=== PATIENT | male | born 1985 | race Caucasian/White ===

== ENCOUNTER 2017-11-19 02:00 | Emergency (ER) | payer MEDICAID ==
[2017-11-19] MEDS: HYDROCODONE/APAP (10/325) TAB PO (03:20)
== END 2017-11-19 05:09 | disposition home or self-care (01) ==
LOC: FTE 02:00
DX: S62.316A Displaced fracture of base of fifth metacarpal bone, right hand, initial encounter for closed fracture (principal); F17.210 Nicotine dependence, cigarettes, uncomplicated; Y09 Assault by unspecified means; Y92.481 Parking lot as the place of occurrence of the external cause
CPT/HCPCS: 29125; 73130-RT; 99283-25

== ENCOUNTER 2018-08-08 20:22 | Emergency (ER) | payer MEDICAID ==
[2018-08-09 00:56] LABS: ADD MAN DIFF? NO
[2018-08-09 00:59] LABS: BASOPHIL # 0.1 10^3/ul (0.0-0.1); BASOPHILS % 0.4 % (0.0-2.0); EOSINOPHILS # 0.4 10^3/ul (0.0-0.5); EOSINOPHILS % 3.7 % (0.0-7.0); HEMATOCRIT 47.7 % (42.0-52.0); HEMOGLOBIN 16.5 g/dl (14.0-18.0); LYMPHOCYTES # 2.8 10^3/ul (0.8-2.9); LYMPHOCYTES % 23.8 % (15.0-51.0); MEAN CORPUSCULAR HEMOGLOBIN 31.1 pg (29.0-33.0); MEAN CORPUSCULAR HGB CONC 34.6 g/dl (32.0-37.0); MEAN CORPUSCULAR VOLUME 89.8 fl (82.0-101.0); MONOCYTE # 0.8 10^3/ul (0.3-0.9); MONOCYTES % 6.9 % (0.0-11.0); NEUTROPHIL # 7.6 10^3/ul (1.6-7.5); NEUTROPHILS % 64.9 % (39.0-77.0); PLATELET COUNT 262 10^3/UL (140-415); RED BLOOD COUNT 5.31 10^6/ul (4.70-6.10); RED CELL DISTRIBUTION WIDTH 12.4 % (11.5-14.5)
[2018-08-09 00:59] LABS: WHITE BLOOD COUNT 11.8 10^3/ul (4.8-10.8)
[2018-08-09] MEDS: morphine 4 MG/ML VIAL IV (01:04)
[2018-08-09] MEDS: ONDANSETRON 4 MG INJ IV (01:04)
[2018-08-09 01:15] LABS: ANION GAP 11 (5-13); BLOOD UREA NITROGEN 13 mg/dl (7-20); CALCIUM 10.3 mg/dl (8.4-10.2); CARBON DIOXIDE 31 mmol/L (21-31); CHLORIDE 99 mmol/L (97-110); CREATININE 0.69 mg/dl (0.61-1.24); Estimated GFR > 60 mL/min (>60); GLUCOSE 112 mg/dl (70-220); POTASSIUM 3.9 mmol/L (3.5-5.1); SODIUM 141 mmol/L (135-144)
[2018-08-09 01:27] LABS: TROPONIN-I < 0.012 ng/ml (0.000-0.120)
[2018-08-09] MEDS: SOD CHLORIDE 0.9% 100 ML (02:09)
[2018-08-09] MEDS: IOHEXOL 300MG/ML 150 ML BTL (02:09)
== END 2018-08-09 03:38 | disposition home or self-care (01) ==
LOC: E/R 08-09 03:38
DX: R07.9 Chest pain, unspecified (principal); F17.210 Nicotine dependence, cigarettes, uncomplicated
CPT/HCPCS: 36415; 71275; 80048; 84484; 85025; 93005; 96374; 96375; 99285-25